=== PATIENT | male | born 1955 | race Caucasian/White ===

== ENCOUNTER → 2021-07-14 | Outpatient (CLI) | payer MEDICARE ==
[2015-04-16 08:27] VITALS: BP 154/96
[~2021-07-14] MED LIST: ASPI-482 PO; OMEG300C PO
--- NOTE | 2021-07-14 17:48 | KCIC ---
XR FOOT_LEFT 3 VIEWS History: Left foot pain for one month. First digit. Comparison: None. Technique: 3 views the left foot. Findings: Osseous mineralization is normal. No fracture or dislocaton. Mild osteophytes and joint space narrowi ng at the first metatarsophalangeal joint. Moderate plantar calcaneal enthesophyte. Soft tissue swell ing medial to the first MTP joint. Impression: 1. Soft tissue swelling medial to the first MTP joint. No acute osseous abnormality. 2. Mild first MTP osteoarthritis. Electronically signed by: Jourdan Flores MD (07/14/2021 5:45 PM) [id number]
== END ==
LOC: KCIC 08:34
PROVIDERS: ATTEND Family Medicine
DX: M19.072 Primary osteoarthritis, left ankle and foot (principal); M25.775 Osteophyte, left foot; M77.32 Calcaneal spur, left foot; M79.89 Other specified soft tissue disorders
CPT/HCPCS: 73630